=== PATIENT | male | born 1945 | race Caucasian/White ===

== ENCOUNTER → 2019-03-20 | Day surgery (SDC) | payer OTHER ==
[~2019-03-20] MED LIST: AMLO10TA8 PO; ASPI81TA50 PO; ATORVASTATIN CA80 MG PO; GLIM2TAB3 PO; HYDR-2145 PO; IRBE300T3 PO; IV NORMAL SALINE 500ML 500 ML IV ONE; IV RINGERS SOLUTION,LACTATED 1,000 ML IV SCH; METF500T16 PO; OMEP20CA10 PO; ONDANSETRON PF 4 MG/2 ML VIAL. IV PRN; PHENOL ORAL SPRAY 177ML BOTTLE. MM PRN; PROPOFOL 10,000 MCG/ML (20ML) VIAL IV ONE; PROPOFOL 40 ML IV ONE; SERT100T PO; diphenhydrAMINE 50 MG/ML VIAL IV PRN; hydrALAZINE 20 MG/ML VIAL. IV PRN
[2019-03-20 11:29] VITALS: BP 122/61
--- NOTE | 2019-03-23 14:08 | PATHOLOGY ---
[facility] Accession Number: [id number] . 01 Material submitted: . PART A: stomach - ANTRUM PART B: colon - TRANSVERSE COLON POLYP. Modifiers: transverse PART C: colon - DESCENDING COLON POLYP. Modifiers: descending . 01 Clinical history: . Pre-OP DX: GERD, Hx colon cancer Post-OP DX: Gastritis, colon polyps . 02 Diagnosis: A. Gastric biopsies, antrum: - Consistent with reactive gastropathy. . B. Colon biopsies, transverse colon polyp: - Tubular adenoma. . C. Colon biopsy, descending colon polyp: - Tubular adenoma. . (JPM:ban; 03/23/2019) QMS 03/23/2019 0902 Local . 02 Comment: Sections of the gastric antral biopsy show congestion, focal foveolar hyperplasia, and only slight chronic inflammation. A properly controlled immunoperoxidase stain for Helicobacter is negative for Helicobacter organisms. . Sections of the transverse colon and descending colon biopsies reveal tubular adenomas showing no high grade dysplasia or evidence of malignancy. (JPM:ban; 03/23/2019) . . Special stain performed: Immunoperoxidase stain for Helicobacter . 02 Electronically signed: . Gordy Wakefield MD, Pathologist NPI- [id number] . 01 Gross description: . A. Received in formalin labeled "Evert Gordy, antrum," are 2 segments of juarez soft tissue measuring 0.9 x 0.3 x 0.2 cm in aggregate dimensions and ranging from 0.4 to 0.5 cm in maximum dimension. The specimen is submitted entirely in cassette A1. . B. Received in formalin labeled "Gordy Loyd, transverse colon," are 2 segments of juarez soft tissue measuring 0.9 x 0.3 x 0.2 cm in aggregate dimensions and ranging from 0.4 to 0.5 cm in maximum dimension. The specimen is submitted entirely in cassette B1. . C. Received in formalin labeled "Gordy Loyd, descending colon polyp," is a single segment of juarez soft tissue measuring 0.3 cm in maximum dimension. The specimen is entirely submitted in cassette C1. (TSD; 03/20/2019) TOB/TOB 03/20/2019 1801 Local . 02 Pathologist provided ICD-10: K31.9, D12.3, D12.4 . 02 CPT . 514700, [id number], [id number], [id number] Specimen Comment: A courtesy copy of this report has been sent to Specimen Comment: [phone], . Specimen Comment: Report sent to / DR BIRMINGHAM Performed at: 01 [facility] [address], [place] [id number] MD Govind West MD Phone: [phone] Performed at: 02 [facility] [address], [place] [id number] MD Gordy Wakefield MD Phone: [phone]
== END | disposition home or self-care (01) ==
LOC: SURG 09:04
PROVIDERS: ATTEND Internal Medicine Gastroenterology
DX: Z12.11 Encounter for screening for malignant neoplasm of colon (principal); D12.3 Benign neoplasm of transverse colon; D12.4 Benign neoplasm of descending colon; K29.50 Unspecified chronic gastritis without bleeding; K29.00 Acute gastritis without bleeding; K21.0 Gastro-esophageal reflux disease with esophagitis; K44.9 Diaphragmatic hernia without obstruction or gangrene; K63.89 Other specified diseases of intestine; K31.89 Other diseases of stomach and duodenum; I10 Essential (primary) hypertension; Z79.899 Other long term (current) drug therapy; Z86.010 Personal history of colon polyps; Z98.890 Other specified postprocedural states; Z98.0 Intestinal bypass and anastomosis status
CPT/HCPCS: 43239; 45380; 82947; 88305; 88342; J2704; J7120; 45378